=== PATIENT | female | born 1970 | race Caucasian/White ===

== ENCOUNTER 2017-05-25 16:08 | Emergency (ER) | payer OTHER ==
[2017-05-25 17:04] VITALS: RESP 18
[2017-05-25 18:12] LABS: Basophils # (A) 0.1 k/uL (0-0.2); Basophils % (A) 1 %; CH 30.6; Eosinophils # (A) 0.4 k/uL (0-0.7); Eosinophils % (A) 4 %; HCT 38.6 % (34.0-46.0); HDW 2.52; HGB 13.1 gm/dL (11.4-16.0); Luc # (Auto) 0.17; Luc % (Auto) 2; Lymphocytes # (A) 3.4 k/uL (1.0-4.8); Lymphocytes % (A) 40 %; MCH 30.6 pg (25.0-35.0); MCHC 33.8 g/dL (31.0-37.0); MCV 90.5 fL (80.0-100.0); Mean Platelet Volume 7.2; Monocytes # (A) 0.5 k/uL (0-1.0); Monocytes % (A) 5 %; Neutrophils # (A) 4.1 k/uL (1.3-7.7); Neutrophils % (A) 48 %; RBC 4.26 m/uL (3.80-5.40); RDW 12.7 % (11.5-15.5); WBC 8.5 k/uL (3.8-10.6); WBC (Perox) 8.92
--- NOTE | 2017-05-25 18:16 | XR ---
EXAMINATION TYPE: XR chest 2V DATE OF EXAM: 05/25/2017 COMPARISON: NONE HISTORY: Chest pain TECHNIQUE: Frontal and lateral views of the chest are obtained. FINDINGS: Heart and mediastinum are normal. Lungs are clear. Diaphragm is normal. There are chest le ads. Bony thorax appears normal. IMPRESSION: Normal chest
[2017-05-25 18:18] LABS: ALT 33 U/L (9-52); AST 26 U/L (14-36); Alkaline Phosphatase 67 U/L (38-126); Amylase 82 U/L (30-110); Anion Gap 10 mmol/L; Blood Urea Nitrogen 13 mg/dL (7-17); Carbon Dioxide 25 mmol/L (22-30); Chloride 105 mmol/L (98-107); Glucose 90 mg/dL (74-99); Magnesium 1.7 mg/dL (1.6-2.3); Non-African American GFR(MDRD) >60 (>60 ml/min/1.73 sqM); Potassium 3.8 mmol/L (3.5-5.1); Sodium 140 mmol/L (137-145); Total Bilirubin 0.4 mg/dL (0.2-1.3); Total Protein 6.7 g/dL (6.3-8.2)
[2017-05-25 18:22] LABS: Partial Thromboplastin Time 23.4 sec (22.0-30.0)
[2017-05-25 18:24] LABS: Prothrombin Time 10.3 sec (9.0-12.0)
[2017-05-25 18:29] LABS: Creatine Kinase 82 U/L (30-135)
[2017-05-25 18:40] VITALS: PULSE 68
[2017-05-25 18:42] LABS: Creatine Kinase MB 0.5 ng/mL (0.0-2.4); Troponin I <0.012 ng/mL (0.000-0.034)
--- NOTE | 2017-05-25 19:59 | ED ---
General Adult HPI - General Chief complaint: Chest Pain Stated complaint: Chest/Abd/Back Pain Time Seen by Provider: 05/25/17 16:32 Source: patient, RN notes reviewed Mode of arrival: wheelchair Limitations: no limitations - History of Present Illness Initial comments: 46-year-old female presents to the history of sharp anterior chest pain and left arm pain. Denies shortness of breath. Patient also has had several month history of back pain which is worse with eating. She denies vomiting or diarrhea. Does have some intermittent nausea and generalized abdominal pain. Denies any specific injury but does have a job where she does heavy lifting. There is a positive family history coronary artery disease. Patient is a nonsmoker. Chest pain is sharp in worse with movement. - Related Data Home Medications Medication Instructions Recorded Confirmed Aspirin [Adult Low Dose Aspirin EC] 81 mg PO DAILY 05/25/17 05/25/17 Cholecalciferol [Vitamin D3] 1,000 unit PO DAILY 05/25/17 05/25/17 Metoprolol Tartrate [Lopressor] 100 mg PO DAILY 05/25/17 05/25/17 [place]-3 Fatty Acids/Fish Oil [Fish 1 cap PO DAILY 05/25/17 05/25/17 Oil 1,000 mg Softgel] Previous Rx's Medication Instructions Recorded Ibuprofen [Motrin] 600 mg PO Q8HR PRN #24 tab 05/25/17 Allergies Allergy/AdvReac Type Severity Reaction Status Date / Time Penicillins Allergy Anaphylaxis Verified 05/25/17 17:50 Sulfa (Sulfonamide Allergy Rash/Hives Verified 05/25/17 17:50 Antibiotics) Review of Systems ROS Statement: Those systems with pertinent positive or pertinent negative responses have been documented in the HPI. ROS Other: All systems not noted in ROS Statement are negative. Past Medical History Past Medical History: Hypertension Additional Past Medical History / Comment(s): hypoglycemia History of Any Multi-Drug Resistant Organisms: None Reported Past Surgical History: Section Additional Past Surgical History / Comment(s): (L) breast biopsy. Past Psychological History: No Psychological Hx Reported Smoking Status: Never smoker Past Alcohol Use History: None Reported Past Drug Use History: None Reported General Exam Limitations: no limitations General appearance: alert, in no apparent distress Head exam: Present: atraumatic, normocephalic Eye exam: Present: normal appearance, PERRL ENT exam: Present: normal exam, mucous membranes moist Neck exam: Present: normal inspection. Absent: tenderness, full ROM Respiratory exam: Present: normal lung sounds bilaterally. Absent: respiratory distress, wheezes Cardiovascular Exam: Present: regular rate, normal rhythm, other (Reproducible anterior chest pain at the left sternal border). Absent: rubs GI/Abdominal exam: Present: soft. Absent: distended, tenderness Extremities exam: Present: normal inspection, normal capillary refill. Absent: pedal edema Back exam: Present: normal inspection Neurological exam: Present: alert, oriented X3, CN II-XII intact. 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 There is no ST segment elevation or depression, no signs of ischemia. Medical Decision Making - Medical Decision Making 46-year-old female presents with sharp anterior chest pain which is reproducible on examination. 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 She denies any specific injury. Patient does have risk factors including positive family history of some associated nausea. Laboratory studies are obtained which are unremarkable including normal cardiac enzymes, EKG shows no ischemic changes. Chest x-ray shows no acute process. Again chest pain is reproducible. Patient is reassured and given a prescription for Motrin. Encouraged to follow up with her primary care physician. Diagnosis: Muscular skeletal chest pain - Lab Data Result diagrams: 05/25/17 16:55 05/25/17 16:55 Lab Results 05/25/17 05/25/17 05/25/17 Range/Units 16:55 16:55 16:55 WBC 8.5 (3.8-10.6) k/uL RBC 4.26 (3.80-5.40) m/uL Hgb 13.1 (11.4-16.0) gm/dL Hct 38.6 (34.0-46.0) % MCV 90.5 (80.0-100.0) fL MCH 30.6 (25.0-35.0) pg MCHC 33.8 (31.0-37.0) g/dL RDW 12.7 (11.5-15.5) % Plt Count 241 (150-450) k/uL Neutrophils % 48 % Lymphocytes % 40 % Monocytes % 5 % Eosinophils % 4 % Basophils % 1 % Neutrophils # 4.1 (1.3-7.7) k/uL Lymphocytes # 3.4 (1.0-4.8) k/uL Monocytes # 0.5 (0-1.0) k/uL Eosinophils # 0.4 (0-0.7) k/uL Basophils # 0.1 (0-0.2) k/uL PT (9.0-12.0) sec INR (<1.2) APTT (22.0-30.0) sec Sodium 140 (137-145) mmol/L Potassium 3.8 (3.5-5.1) mmol/L Chloride 105 (98-107) mmol/L Carbon Dioxide 25 (22-30) mmol/L Anion Gap 10 mmol/L BUN 13 (7-17) mg/dL Creatinine 0.75 (0.52-1.04) mg/dL Est GFR (MDRD) Af Amer >60 (>60 ml/min/1.73 sqM) Est GFR (MDRD) Non-Af >60 (>60 ml/min/1.73 sqM) Glucose 90 (74-99) mg/dL Calcium 9.0 (8.4-10.2) mg/dL Magnesium 1.7 (1.6-2.3) mg/dL Total Bilirubin 0.4 (0.2-1.3) mg/dL AST 26 (14-36) U/L ALT 33 (9-52) U/L Alkaline Phosphatase 67 (38-126) U/L Total Creatine Kinase 82 (30-135) U/L CK-MB (CK-2) 0.5 (0.0-2.4) ng/mL CK-MB (CK-2) Rel Index 0.6 Troponin I <0.012 (0.000-0.034) ng/mL Total Protein 6.7 (6.3-8.2) g/dL Albumin 4.0 (3.5-5.0) g/dL Amylase 82 (30-110) U/L Lipase 210 (23-300) U/L 05/25/17 Range/Units 16:55 WBC (3.8-10.6) k/uL RBC (3.80-5.40) m/uL Hgb (11.4-16.0) gm/dL Hct (34.0-46.0) % MCV (80.0-100.0) fL MCH (25.0-35.0) pg MCHC (31.0-37.0) g/dL RDW (11.5-15.5) % Plt Count (150-450) k/uL Neutrophils % % Lymphocytes % % Monocytes % % Eosinophils % % Basophils % % Neutrophils # (1.3-7.7) k/uL Lymphocytes # (1.0-4.8) k/uL Monocytes # (0-1.0) k/uL Eosinophils # (0-0.7) k/uL Basophils # (0-0.2) k/uL PT 10.3 (9.0-12.0) sec INR 1.0 (<1.2) APTT 23.4 (22.0-30.0) sec Sodium (137-145) mmol/L Potassium (3.5-5.1) mmol/L Chloride (98-107) mmol/L Carbon Dioxide (22-30) mmol/L Anion Gap mmol/L BUN (7-17) mg/dL Creatinine (0.52-1.04) mg/dL Est GFR (MDRD) Af Amer (>60 ml/min/1.73 sqM) Est GFR (MDRD) Non-Af (>60 ml/min/1.73 sqM) Glucose (74-99) mg/dL Calcium (8.4-10.2) mg/dL Magnesium (1.6-2.3) mg/dL Total Bilirubin (0.2-1.3) mg/dL AST (14-36) U/L ALT (9-52) U/L Alkaline Phosphatase (38-126) U/L Total Creatine Kinase (30-135) U/L CK-MB (CK-2) (0.0-2.4) ng/mL CK-MB (CK-2) Rel Index Troponin I (0.000-0.034) ng/mL Total Protein (6.3-8.2) g/dL Albumin (3.5-5.0) g/dL Amylase (30-110) U/L Lipase (23-300) U/L Disposition Clinical Impression: Musculoskeletal chest pain Disposition: HOME SELF-CARE Condition: Good Instructions: Costochondritis (ED) Prescriptions: Ibuprofen [Motrin] 600 mg PO Q8HR PRN #24 tab PRN Reason: Pain Referrals: Alis Sanchez MD [Primary Care Provider] - 1-2 days Time of Disposition: 19:30
[2017-05-25 20:19] VITALS: BP 134/81; TEMP 99.3
== END 2017-05-25 20:19 | disposition home or self-care (01) ==
LOC: EC 16:08
DX: R07.89 Other chest pain (principal); M79.602 Pain in left arm; R10.84 Generalized abdominal pain; R11.0 Nausea; I10 Essential (primary) hypertension; Z79.82 Long term (current) use of aspirin; Z79.899 Other long term (current) drug therapy; Z88.0 Allergy status to penicillin; Z88.2 Allergy status to sulfonamides
CPT/HCPCS: 36415; 71020; 80053; 82150; 82550; 82553; 83690; 83735; 84484; 85025; 85610; 85730; 93005; 99285

== ENCOUNTER 2018-03-25 10:59 | Emergency (ER) | payer OTHER ==
[2018-03-25 11:07] VITALS: PULSE 65
[2018-03-25] MEDS ORDERED: IBUPROFEN 800 MG TAB PO STA (11:52)
--- NOTE | 2018-03-25 11:55 | XR ---
PROCEDURE: XR ribs LT w pa chest xray 5 views DATE AND TIME: 03/25/2018 11:37 AM REFERRING PHYSICIAN: Steve Mackey DO CLINICAL INDICATION: [facility], Pain TECHNIQUE: Department protocol. COMPARISON: None FINDINGS: There is no displaced fracture or malalignment. No pneumothorax or pleural effusion. The soft tissues are unremarkable. No incidental findings. IMPRESSION: NO ACUTE PROCESS.
--- NOTE | 2018-03-25 12:08 | ED ---
Fall HPI - General Chief Complaint: Fall Stated Complaint: [facility] left rib pain fall at work Time Seen by Provider: 03/25/18 11:09 Source: patient Mode of arrival: ambulatory - History of Present Illness Initial Comments: 47-year-old female presenting for evaluation of left rib pain after a fall. She states that she was about to stand on the edge of a bathtub and as she put her foot up on the ledge she slipped and fell to her left side, hitting her left chest wall on the rim of the tub, and following to her side. She denies hitting her head or injuring her neck and there are no other injuries. She did not lose consciousness and is not on blood thinners. States she felt a crack upon impact but denies any overlying bruising erythema or other discoloration. States pain is worse to palpation and with inspiration. She has not taken any medications for her injury and states that she was brought here by her boss. She will be taking a cab home. - Related Data Home Medications Medication Instructions Recorded Confirmed Aspirin [Adult Low Dose Aspirin EC] 81 mg PO DAILY 05/25/17 05/25/17 Cholecalciferol [Vitamin D3] 1,000 unit PO DAILY 05/25/17 05/25/17 Metoprolol Tartrate [Lopressor] 100 mg PO DAILY 05/25/17 05/25/17 [place]-3 Fatty Acids/Fish Oil [Fish 1 cap PO DAILY 05/25/17 05/25/17 Oil 1,000 mg Softgel] Previous Rx's Medication Instructions Recorded Ibuprofen [Motrin] 600 mg PO Q8HR PRN #24 tab 05/25/17 HYDROcodone/APAP 5-325MG [[place] 1 - 2 tab PO Q6HR PRN #7 tab 03/25/18 5-325] Ibuprofen [Motrin] 800 mg PO Q6HR #30 tab 03/25/18 Allergies Allergy/AdvReac Type Severity Reaction Status Date / Time acetaminophen Allergy Dyspnea Verified 03/25/18 11:07 [From Darvocet-N] Penicillins Allergy Anaphylaxis Verified 05/25/17 17:50 propoxyphene Allergy Dyspnea Verified 03/25/18 11:07 [From Darvocet-N] Sulfa (Sulfonamide Allergy Rash/Hives Verified 05/25/17 17:50 Antibiotics) Review of Systems ROS Statement: Those systems with pertinent positive or pertinent negative responses have been documented in the HPI. ROS Other: All systems not noted in ROS Statement are negative. Constitutional: Denies: fever, chills Eyes: Denies: eye pain, eye discharge ENT: Denies: ear pain, throat pain, epistaxis Respiratory: Denies: cough, dyspnea Cardiovascular: Denies: chest pain, palpitations Endocrine: Denies: fatigue, polydipsia Gastrointestinal: Denies: abdominal pain, nausea, vomiting Genitourinary: Denies: urgency, dysuria Musculoskeletal: Reports: other (left-sided chest wall pain). Denies: back pain Skin: Denies: rash, lesions, change in color Neurological: Denies: headache, weakness Psychiatric: Denies: anxiety, depression Hematological/Lymphatic: Denies: easy bleeding, easy bruising Past Medical History Past Medical History: Hypertension Additional Past Medical History / Comment(s): hypoglycemia History of Any Multi-Drug Resistant Organisms: None Reported Past Surgical History: Section Additional Past Surgical History / Comment(s): (L) breast biopsy. Past Psychological History: No Psychological Hx Reported Smoking Status: Never smoker Past Alcohol Use History: None Reported Past Drug Use History: None Reported General Exam Limitations: no limitations General appearance: alert, in no apparent distress Head exam: Present: atraumatic, normocephalic, normal inspection Eye exam: Present: normal appearance, PERRL, EOMI. Absent: scleral icterus, conjunctival injection, periorbital swelling ENT exam: Present: normal exam, mucous membranes moist Neck exam: Present: normal inspection. Absent: tenderness, meningismus, lymphadenopathy Respiratory exam: Present: normal lung sounds bilaterally, chest wall tenderness (left side/flank). Absent: respiratory distress, wheezes, rales, rhonchi, stridor Cardiovascular Exam: Present: regular rate, normal rhythm, normal heart sounds. Absent: systolic murmur, diastolic murmur, rubs, gallop, clicks GI/Abdominal exam: Present: soft, normal bowel sounds. Absent: distended, tenderness, guarding, rebound, rigid Rectal exam: Present: deferred Extremities exam: Present: normal inspection, full ROM, normal capillary refill. Absent: tenderness, pedal edema, joint swelling, calf tenderness Back exam: Present: normal inspection, full ROM Neurological exam: Present: alert, oriented X3, CN II-XII intact Psychiatric exam: Present: normal affect, normal mood Skin exam: Present: warm, dry, intact, normal color. Absent: rash Course Vital Signs 03/25/18 11:03 Temperature 98.3 F Pulse Rate 65 Respiratory 18 Rate Blood Pressure 135/75 O2 Sat by Pulse 97 Oximetry Medical Decision Making - Medical Decision Making 47-year-old female presenting for evaluation of left-sided chest wall pain after falling and hitting it on the edge of a bathtub. Denies loss of consciousness, blood thinner use, head neck or back injury. On physical exam she has tenderness over the left flank and chest wall however there is no overlying erythema or bruising or crepitus to palpation. Left rib/PA x-ray obtained which showed no acute process. The patient was reevaluated and given Motrin for pain control. Advised follow-up with her primary care physician and given pain control for home. Further given instructions on incentive spirometer use by respiratory therapy. Also advised to return here or to PCPs office for repeat x-ray if pain worsens or continues. The patient acknowledged an understanding of all formation provided and agreed with this plan of care. Disposition Clinical Impression: Fall, Rib pain on left side Disposition: HOME SELF-CARE Condition: Stable Instructions: Chest Pain (ED) Additional Instructions: Please use medication as discussed. Please follow up with family doctor if symptoms have not improved over the next two days. Please return to the emergency room if your symptoms increase or worsen or for any other concerns. Prescriptions: HYDROcodone/APAP 5-325MG [[place] 5-325] 1 - 2 tab PO Q6HR PRN #7 tab PRN Reason: Analgesia Ibuprofen [Motrin] 800 mg PO Q6HR #30 tab Is patient prescribed a controlled substance at d/c from ED?: Yes When asked, does pt state using other controlled substances?: No If prescribed controlled substance>3 days was MAPS reviewed?: Prescribed <3 Days If opioid is for acute pain is fill amount 7 days or less?: Yes If Rx opioid, was Start Talking consent form obtained?: Yes Referrals: Alis Sanchez MD [Primary Care Provider] - 1-2 days Time of Disposition: 12:09
[2018-03-25 12:26] VITALS: BP 132/70; RESP 16; TEMP 98.2
== END 2018-03-25 12:24 | disposition home or self-care (01) ==
LOC: EC 10:59
DX: R07.81 Pleurodynia (principal); I10 Essential (primary) hypertension; Z88.0 Allergy status to penicillin; Z88.2 Allergy status to sulfonamides; Z88.5 Allergy status to narcotic agent; Z79.82 Long term (current) use of aspirin; Z79.899 Other long term (current) drug therapy; W18.31XA Fall on same level due to stepping on an object, initial encounter; Y99.0 Civilian activity done for income or pay; Y92.69 Other specified industrial and construction area as the place of occurrence of the external cause
CPT/HCPCS: 99284

== ENCOUNTER 2018-06-24 08:42 | Emergency (ER) | payer OTHER ==
[2018-06-24] MEDS ORDERED: MECLIZINE 12.5 MG TAB PO STA (09:13)
[2018-06-24] MEDS ORDERED: ONDANSETRON 4 MG/2 ML VIAL IVP STA (09:13)
[2018-06-24] MEDS ORDERED: SODIUM CHLORIDE 0.9% 1,000 ML IV STA ×2 (09:13)
--- NOTE | 2018-06-24 09:17 | ED ---
Syncope HPI <Abad Alex - Last Filed: 06/24/18 11:31> - General Source: patient, RN notes reviewed, old records reviewed Mode of arrival: wheelchair Limitations: no limitations <FrandyEdilia - Last Filed: 06/24/18 11:33> - General Chief Complaint: Dizziness Stated Complaint: dizziness, nausea Time Seen by Provider: 06/24/18 08:57 - History of Present Illness Initial Comments: Patient is a 39-year-old female presents to the emergency department today with chief complaint of dizziness. The past 2 days. She reports she's had episodes of vomiting yesterday. She reports that the dizziness and symptoms are worse after she turns her head left and right. She reports she's had this occasionally in the past but never this severe. Patient denies any sinus congestion. She denies any chest pain or shortness breath. She presents reports that she has an occasional episode of chest pain. only within the past few weeks. Patient denies any fevers or chills diarrhea or urinary symptoms. (Edilia Wise) - Related Data Home Medications Medication Instructions Recorded Confirmed Aspirin [Adult Low Dose Aspirin EC] 81 mg PO DAILY 05/25/17 06/24/18 Cholecalciferol [Vitamin D3] 1,000 unit PO DAILY 05/25/17 06/24/18 Metoprolol Tartrate [Lopressor] 100 mg PO DAILY 05/25/17 06/24/18 Fenofibrate Nanocrystallized 48 mg PO DAILY 06/24/18 06/24/18 [Fenofibrate] Magnesium 200 mg PO DAILY 06/24/18 06/24/18 Previous Rx's Medication Instructions Recorded Meclizine [Antivert] 25 mg PO TID #12 tab 06/24/18 Ondansetron Odt [Zofran Odt] 4 mg PO Q8HR PRN #20 tab 06/24/18 Allergies Allergy/AdvReac Type Severity Reaction Status Date / Time acetaminophen Allergy Dyspnea Verified 06/24/18 10:41 [From Darvocet-N] lisinopril Allergy Unknown Verified 06/24/18 10:41 Penicillins Allergy Anaphylaxis Verified 06/24/18 10:41 propoxyphene Allergy Dyspnea Verified 06/24/18 10:41 [From Darvocet-N] Sulfa (Sulfonamide Allergy Rash/Hives Verified 06/24/18 10:41 Antibiotics) sulfamethoxazole Allergy Unknown Verified 06/24/18 10:41 [From Bactrim] trimethoprim [From Bactrim] Allergy Unknown Verified 06/24/18 10:41 Review of Systems ROS Other: All systems not noted in ROS Statement are negative. <Abad Alex - Last Filed: 06/24/18 11:31> ROS Other: All systems not noted in ROS Statement are negative. <Brittany Wiseily - Last Filed: 06/24/18 11:33> ROS Statement: Those systems with pertinent positive or pertinent negative responses have been documented in the HPI. Past Medical History Past Medical History: Hypertension Additional Past Medical History / Comment(s): hypoglycemia History of Any Multi-Drug Resistant Organisms: None Reported Past Surgical History: Section Additional Past Surgical History / Comment(s): (L) breast biopsy. Past Psychological History: No Psychological Hx Reported Smoking Status: Never smoker Past Alcohol Use History: None Reported Past Drug Use History: None Reported <Edilia Wise - Last Filed: 06/24/18 11:33> General Exam <IsaiAbad - Last Filed: 06/24/18 11:31> Limitations: no limitations General appearance: alert, in no apparent distress Head exam: Present: atraumatic, normocephalic, normal inspection Eye exam: Present: normal appearance, PERRL, EOMI, nystagmus (Evidence of horizontal nystagmus on left lateral gaze.). Absent: scleral icterus, conjunctival injection, periorbital swelling ENT exam: Present: normal exam, normal oropharynx, mucous membranes moist Neck exam: Present: normal inspection. Absent: tenderness, meningismus, lymphadenopathy Respiratory exam: Present: normal lung sounds bilaterally. Absent: respiratory distress, wheezes, rales, rhonchi, stridor Cardiovascular Exam: Present: regular rate, normal rhythm, normal heart sounds. Absent: systolic murmur, diastolic murmur, rubs, gallop, clicks GI/Abdominal exam: Present: soft, normal bowel sounds. Absent: distended, tenderness, guarding, rebound, rigid Extremities exam: Present: normal inspection, full ROM, normal capillary refill. Absent: tenderness, pedal edema, joint swelling, calf tenderness Back exam: Present: normal inspection Neurological exam: Present: alert, oriented X3, CN II-XII intact Expanded Patient oriented to: Present: person, place, time Speech: Present: fluid speech Cranial nerves: EOM's Intact: Normal Cerebellar function: Finger to Nose: Normal Upper motor neuron: Pronator Drift: Normal Sensory exam: Upper Extremity Light Touch: Normal, Lower Extremity Light Touch: Normal Motor strength exam: RUE: 5, LUE: 5, RLE: 5, LLE: 5 Eye Response: (4) open spontaneously Motor Response: (6) obeys commands Verbal Response: (5) oriented [place] Total: 15 Psychiatric exam: Present: normal affect, normal mood Skin exam: Present: warm, dry, intact, normal color. Absent: rash <Edilia Wise - Last Filed: 06/24/18 11:33> - General Exam Comments Initial Comments: This is a 47-year-old female. (Edilia Wise) Course <Abad Alex - Last Filed: 06/24/18 11:31> <Edilia Wise - Last Filed: 06/24/18 11:33> Vital Signs 06/24/18 08:49 Temperature 97.8 F Pulse Rate 70 Respiratory 18 Rate Blood Pressure 137/85 O2 Sat by Pulse 97 Oximetry - Reevaluation(s) Reevaluation #1: 06/24/18 10:54 Patient is reevaluated this time, she sitting in the room playing on her eye pad. She appears in no acute distress. She does state when she stays no for head she feels dizzy with a mild headache in the posterior head. She reports her nausea is diminished but still complains of a dizziness. I discussed she has no signs of neurological deficits is quite concerning. We will do a computed tomography scan of her brain. (Edilia Wise) Medical Decision Making - Lab Data Result diagrams: 06/24/18 09:09 06/24/18 09:09 <Abad Alex - Last Filed: 06/24/18 11:31> - Lab Data Result diagrams: 06/24/18 09:09 06/24/18 09:09 - Radiology Data Radiology results: report reviewed <Edilia Wise - Last Filed: 06/24/18 11:33> - Medical Decision Making I reviewed and agree with the PA findings. Including all diagnostic interpretations and treatment plan. Dr. Alex (Abad Alex) 39-year-old female presents emergency room today with pain with range of motion of her head and associated dizziness. She said multiple episodes of vomiting. Patient labwork at this time is ongoing. EKG shows no acute changes. Chest x- ray was reviewed and negative for any acute process. Due to the continued dizziness complaints of a mild headache rated to computed tomography scan. CT was negative for any acute process. Pain seems to be positional with turning her head left and right. Likely consistent with vertigo. She did have some nystagmus on exam. Integument Patient meclizine and Zofran. This time Patient has been very multiple times appears in no acute distress. On her eye pad while in the emergency room. She does no show any other signs of neurological deficits or weakness. Patient at this time will be discharged with a prescription from meclizine and Zofran for dizziness. Given information please maneuver. I discussed that she should follow-up with PCP. QUESTIONS answered and return parameters were discussed. (Edilia Wise) - Lab Data Lab Results 06/24/18 06/24/18 06/24/18 Range/Units 09:09 09:09 09:09 WBC 6.5 (3.8-10.6) k/uL RBC 4.52 (3.80-5.40) m/uL Hgb 13.7 (11.4-16.0) gm/dL Hct 41.7 (34.0-46.0) % MCV 92.2 (80.0-100.0) fL MCH 30.2 (25.0-35.0) pg MCHC 32.8 (31.0-37.0) g/dL RDW 12.9 (11.5-15.5) % Plt Count 216 (150-450) k/uL Neutrophils % 45 % Lymphocytes % 46 % Monocytes % 3 % Eosinophils % 4 % Basophils % 1 % Neutrophils # 2.9 (1.3-7.7) k/uL Lymphocytes # 3.0 (1.0-4.8) k/uL Monocytes # 0.2 (0-1.0) k/uL Eosinophils # 0.3 (0-0.7) k/uL Basophils # 0.0 (0-0.2) k/uL PT 10.7 (9.0-12.0) sec INR 1.1 (<1.2) Sodium 140 (137-145) mmol/L Potassium 4.2 (3.5-5.1) mmol/L Chloride 104 (98-107) mmol/L Carbon Dioxide 26 (22-30) mmol/L Anion Gap 10 mmol/L BUN 20 H (7-17) mg/dL Creatinine 0.83 (0.52-1.04) mg/dL Est GFR (CKD-EPI)AfAm >90 (>60 ml/min/1.73 sqM) Est GFR (CKD-EPI)NonAf 84 (>60 ml/min/1.73 sqM) Glucose 132 H (74-99) mg/dL Calcium 9.4 (8.4-10.2) mg/dL Total Bilirubin 0.5 (0.2-1.3) mg/dL AST 34 (14-36) U/L ALT 32 (9-52) U/L Alkaline Phosphatase 46 (38-126) U/L Troponin I (0.000-0.034) ng/mL Total Protein 7.2 (6.3-8.2) g/dL Albumin 4.5 (3.5-5.0) g/dL Urine Color Urine Appearance (Clear) Urine pH (5.0-8.0) Ur Specific [place] (1.001-1.035) Urine Protein (Negative) Urine Glucose (UA) (Negative) Urine Ketones (Negative) Urine Blood (Negative) Urine Nitrite (Negative) Urine Bilirubin (Negative) Urine Urobilinogen (<2.0) mg/dL Ur Leukocyte Esterase (Negative) Urine RBC (0-5) /hpf Urine WBC (0-5) /hpf Ur Squamous Epith Cells (0-4) /hpf Urine Bacteria (None) /hpf Urine Mucus (None) /hpf 06/24/18 06/24/18 Range/Units 09:09 09:45 WBC (3.8-10.6) k/uL RBC (3.80-5.40) m/uL Hgb (11.4-16.0) gm/dL Hct (34.0-46.0) % MCV (80.0-100.0) fL MCH (25.0-35.0) pg MCHC (31.0-37.0) g/dL RDW (11.5-15.5) % Plt Count (150-450) k/uL Neutrophils % % Lymphocytes % % Monocytes % % Eosinophils % % Basophils % % Neutrophils # (1.3-7.7) k/uL Lymphocytes # (1.0-4.8) k/uL Monocytes # (0-1.0) k/uL Eosinophils # (0-0.7) k/uL Basophils # (0-0.2) k/uL PT (9.0-12.0) sec INR (<1.2) Sodium (137-145) mmol/L Potassium (3.5-5.1) mmol/L Chloride (98-107) mmol/L Carbon Dioxide (22-30) mmol/L Anion Gap mmol/L BUN (7-17) mg/dL Creatinine (0.52-1.04) mg/dL Est GFR (CKD-EPI)AfAm (>60 ml/min/1.73 sqM) Est GFR (CKD-EPI)NonAf (>60 ml/min/1.73 sqM) Glucose (74-99) mg/dL Calcium (8.4-10.2) mg/dL Total Bilirubin (0.2-1.3) mg/dL AST (14-36) U/L ALT (9-52) U/L Alkaline Phosphatase (38-126) U/L Troponin I <0.012 (0.000-0.034) ng/mL Total Protein (6.3-8.2) g/dL Albumin (3.5-5.0) g/dL Urine Color Yellow Urine Appearance Clear (Clear) Urine pH 5.5 (5.0-8.0) Ur Specific [place] 1.016 (1.001-1.035) Urine Protein Negative (Negative) Urine Glucose (UA) Negative (Negative) Urine Ketones Negative (Negative) Urine Blood Small H (Negative) Urine Nitrite Negative (Negative) Urine Bilirubin Negative (Negative) Urine Urobilinogen <2.0 (<2.0) mg/dL Ur Leukocyte Esterase Negative (Negative) Urine RBC 2 (0-5) /hpf Urine WBC 1 (0-5) /hpf Ur Squamous Epith Cells 2 (0-4) /hpf Urine Bacteria Rare H (None) /hpf Urine Mucus Rare H (None) /hpf - EKG Data EKG Comments: EKG performed at a 58 shows normal sinus rhythm abnormal EKG noted. Ventricular rate of 71 bpm. Verbal 164 ms. QS duration 80 ms. QT QTc is 3 03/13/2012 milliseconds. ( Edilia Wise) - Radiology Data Chest x-ray is negative for any acute process. No acute intracranial abnormality noted. (Edilia Wise) Disposition <IsaiAbad - Last Filed: 06/24/18 11:31> Is patient prescribed a controlled substance at d/c from ED?: No <Edilia Wise - Last Filed: 06/24/18 11:33> Clinical Impression: Dizziness Disposition: HOME SELF-CARE Condition: Good Instructions: Dizziness (ED) Additional Instructions: Patient has a follow-up with primary care provider. Return to the emergency department if any alarming signs or symptoms occur. Prescriptions: Meclizine [Antivert] 25 mg PO TID #12 tab Ondansetron Odt [Zofran Odt] 4 mg PO Q8HR PRN #20 tab PRN Reason: Nausea Referrals: Alis Sanchez MD [Primary Care Provider] - 1-2 days
[2018-06-24 09:31] LABS: Basophils % (A) 1 %; Eosinophils # (A) 0.3 k/uL (0-0.7); Eosinophils % (A) 4 %; HCT 41.7 % (34.0-46.0); HGB 13.7 gm/dL (11.4-16.0); Lymphocytes % (A) 46 %; MCH 30.2 pg (25.0-35.0); MCHC 32.8 g/dL (31.0-37.0); MCV 92.2 fL (80.0-100.0); Mean Platelet Volume 6.9; Monocytes # (A) 0.2 k/uL (0-1.0); Monocytes % (A) 3 %; Neutrophils # (A) 2.9 k/uL (1.3-7.7); Neutrophils % (A) 45 %; Platelet Count 216 k/uL (150-450); RBC 4.52 m/uL (3.80-5.40); RDW 12.9 % (11.5-15.5); WBC 6.5 k/uL (3.8-10.6)
[2018-06-24 09:41] LABS: INR 1.1 (<1.2); Prothrombin Time 10.7 sec (9.0-12.0)
[2018-06-24 09:44] LABS: ALT 32 U/L (9-52); AST 34 U/L (14-36); Albumin 4.5 g/dL (3.5-5.0); Alkaline Phosphatase 46 U/L (38-126); Anion Gap 10 mmol/L; Blood Urea Nitrogen 20 mg/dL (7-17); Calcium 9.4 mg/dL (8.4-10.2); Carbon Dioxide 26 mmol/L (22-30); Chloride 104 mmol/L (98-107); Glucose 132 mg/dL (74-99); Potassium 4.2 mmol/L (3.5-5.1); Sodium 140 mmol/L (137-145); Total Bilirubin 0.5 mg/dL (0.2-1.3); Total Protein 7.2 g/dL (6.3-8.2)
--- NOTE | 2018-06-24 10:02 | XR ---
EXAMINATION TYPE: XR chest 2V DATE OF EXAM: 06/24/2018 HISTORY: dizziness. REFERENCE: Previous study dated 03/25/2018. FINDINGS: The lungs are clear. Pleural space are clear. The heart is not enlarged. IMPRESSION: NO ACUTE INTRATHORACIC ABNORMALITY.
[2018-06-24 10:16] LABS: Appearance,Urine Clear (Clear); Bacteria,Urine Rare /hpf; Bilirubin,Urine Negative (Negative); Blood,Urine Small (Negative); Color,Urine Yellow; Glucose,Urine (UA) Negative (Negative); Ketones,Urine Negative (Negative); Leukocyte Esterase,Urine Negative (Negative); Mucus,Urine Rare /hpf; Nitrite,Urine Negative (Negative); PH, Urine 5.5 (5.0-8.0); Protein,Urine Negative (Negative); RBC,Urine 2 /hpf (0-5); Specific Gravity,Urine 1.016 (1.001-1.035); Squamous Epithelial Cell,Urine 2 /hpf (0-4); Urobilinogen,Urine <2.0 mg/dL (<2.0); WBC,Urine 1 /hpf (0-5)
--- NOTE | 2018-06-24 11:19 | CT ---
EXAMINATION TYPE: CT brain wo con DATE OF EXAM: 06/24/2018 COMPARISON: NONE HISTORY: Headache and dizziness. No known injury CT DLP: 1017.9 mGycm Automated exposure control for dose reduction was used. FINDINGS: Central structures are midline. There is no evidence of hydrocephalus. No acute focal lesion, mass ef fect or midline shift is seen. I do not see evidence of intracranial blood. Visualized portions of the paranasal sinuses and mastoids are clear. The bony calvarium is intact. IMPRESSION: NO ACUTE INTRACRANIAL ABNORMALITY.
[2018-06-24 11:40] VITALS: BP 118/69; PULSE 63; RESP 16; TEMP 98.1
== END 2018-06-24 11:45 | disposition home or self-care (01) ==
LOC: EC 08:42
DX: R42 Dizziness and giddiness (principal); R11.2 Nausea with vomiting, unspecified; R51 Headache; I10 Essential (primary) hypertension; Z79.82 Long term (current) use of aspirin; Z79.899 Other long term (current) drug therapy; Z88.6 Allergy status to analgesic agent; Z88.0 Allergy status to penicillin; Z88.2 Allergy status to sulfonamides; Z88.5 Allergy status to narcotic agent
CPT/HCPCS: 36415; 93005; 80053; 84484; 85025; 85610; 81001; 71046; 70450; 99285; 96374; 96361 ×2; J2405

== ENCOUNTER 2020-09-08 13:30 | Emergency (ER) | payer OTHER ==
[2020-09-08 13:44] VITALS: PULSE 82; RESP 18; TEMP 98.3
[2020-09-08 14:36] LABS: Glucose,Whole Blood 89 mg/dL (75-99)
--- NOTE | 2020-09-08 14:38 | ED ---
General Adult HPI - General Chief complaint: Recheck/Abnormal Lab/Rx Stated complaint: hypertension Time Seen by Provider: 09/08/20 14:10 Source: patient, RN notes reviewed Mode of arrival: wheelchair Limitations: no limitations - History of Present Illness Initial comments: 49-year-old female with a past medical history of hypertension for which she ta kes metoprolol and hypoglycemia presents to the emergency room for a chief pressure. Patient states that she started taking her blood pressure over the past few days andit has been high. Patient states that today it was 145/90 when she left the house. Patient does take metoprolol. She tried to call her doctor to see if she could take another half pill but could not get in or talk to her doctor. She states this is what brought her to the emergency room and that she was not able to ask a question and without checking in. Patient reports she has also had headaches for months now. States they are mild in nature. She did have her glasses changed for this. She is following up with her doctor for this.Patient has no other complaints at this time including shortness of breath, chest pain, abdominal pain, nausea or vomiting, or visual changes. - Related Data Home Medications Medication Instructions Recorded Confirmed Aspirin [Adult Low Dose Aspirin EC] 81 mg PO DAILY 05/25/17 06/24/18 Cholecalciferol [Vitamin D3] 1,000 unit PO DAILY 05/25/17 06/24/18 Metoprolol Tartrate [Lopressor] 100 mg PO DAILY 05/25/17 06/24/18 Fenofibrate Nanocrystallized 48 mg PO DAILY 06/24/18 06/24/18 [Fenofibrate] Magnesium 200 mg PO DAILY 06/24/18 06/24/18 Previous Rx's Medication Instructions Recorded Meclizine [Antivert] 25 mg PO TID #12 tab 06/24/18 Ondansetron Odt [Zofran Odt] 4 mg PO Q8HR PRN #20 tab 06/24/18 Allergies Allergy/AdvReac Type Severity Reaction Status Date / Time acetaminophen Allergy Dyspnea Verified 06/24/18 10:41 [From Darvocet-N] lisinopril Allergy Unknown Verified 06/24/18 10:41 Penicillins Allergy Anaphylaxis Verified 06/24/18 10:41 propoxyphene Allergy Dyspnea Verified 06/24/18 10:41 [From Darvocet-N] Sulfa (Sulfonamide Allergy Rash/Hives Verified 06/24/18 10:41 Antibiotics) sulfamethoxazole Allergy Unknown Verified 06/24/18 10:41 [From Bactrim] trimethoprim [From Bactrim] Allergy Unknown Verified 06/24/18 10:41 Review of Systems ROS Statement: Those systems with pertinent positive or pertinent negative responses have been documented in the HPI. ROS Other: All systems not noted in ROS Statement are negative. Past Medical History Past Medical History: Hypertension Additional Past Medical History / Comment(s): hypoglycemia History of Any Multi-Drug Resistant Organisms: None Reported Past Surgical History: Section Additional Past Surgical History / Comment(s): (L) breast biopsy. Past Psychological History: No Psychological Hx Reported Smoking Status: Never smoker Past Alcohol Use History: None Reported Past Drug Use History: None Reported General Exam Limitations: no limitations General appearance: alert Head exam: Present: atraumatic, normocephalic, normal inspection Eye exam: Present: normal appearance, PERRL, EOMI. Absent: scleral icterus, conjunctival injection, periorbital swelling ENT exam: Present: normal exam, mucous membranes moist Neck exam: Present: normal inspection, full ROM. Absent: tenderness, meningismus, lymphadenopathy Respiratory exam: Present: normal lung sounds bilaterally. Absent: respiratory distress, wheezes, rales, rhonchi, stridor Cardiovascular Exam: Present: regular rate, normal rhythm, normal heart sounds. Absent: systolic murmur, diastolic murmur, rubs, gallop, clicks GI/Abdominal exam: Present: soft, normal bowel sounds. Absent: distended, tenderness, guarding, rebound, rigid Neurological exam: Present: alert, oriented X3, normal gait, other (GCS 15) Course Vital Signs 09/08/20 09/08/20 09/08/20 13:38 14:46 14:53 Temperature 98.3 F Pulse Rate 82 Respiratory 18 Rate Blood Pressure 153/90 130/90 130/90 O2 Sat by Pulse 98 Oximetry Medical Decision Making - Medical Decision Making Vitals are stable. Patient's initial blood pressure is 153/90. Patient has slight headache but she has had this for months and had her glasses changed. States she is following up with her primary care provider for this. She also has been following up with her doctor for increased fatigue over the past few months. Patient presented because she wanted to know if she could take another half blood pressure pill and cannot get into her doctor. Her highest blood pressure at home was 145/90. I repeated her blood pressure and is now 130/90. I checked her glucose which is 88. At this time there is no indication for acutely lowering patient's blood pressure as it is within the normal range. If patient's blood pressure goes over 160/98 did say she could take another extra pill however to be cautious because she doesn't want to become hypotensive. I reported she needs to keep a log and follow up with her doctor. She will return here for any worsening symptoms.I discussed this case with attending Dr. Grove who agrees with this assessment and treatment plan. - Lab Data Lab Results 09/08/20 Range/Units 14:34 POC Glucose (mg/dL) 89 (75-99) mg/dL POC Glu Associate Professor Of Surgery ID Irina Keith Disposition Clinical Impression: Hypertension, Normal glucose level Disposition: HOME SELF-CARE Condition: Good Instructions (If sedation given, give patient instructions): Chronic Hypertension (ED) Additional Instructions: Please follow-up with your doctor. In the meantime make a blood pressure log one time daily. If your blood pressure is greater than 160/90 may take another half pill of your blood pressure medication however it needs to be at least 2 hours after your initial blood pressure medication. If you have any worsening symptoms return to the emergency room. Is patient prescribed a controlled substance at d/c from ED?: No Referrals: Alis Sanchez MD [Primary Care Provider] - 1-2 days Time of Disposition: 15:01
[2020-09-08 14:47] VITALS: BP 130/90
== END 2020-09-08 15:06 | disposition home or self-care (01) ==
LOC: EC 13:30
DX: I10 Essential (primary) hypertension (principal); Z79.82 Long term (current) use of aspirin; Z79.899 Other long term (current) drug therapy; Z88.6 Allergy status to analgesic agent; Z88.8 Allergy status to other drugs, medicaments and biological substances; Z88.0 Allergy status to penicillin; Z88.2 Allergy status to sulfonamides; Z88.1 Allergy status to other antibiotic agents; Z88.5 Allergy status to narcotic agent
CPT/HCPCS: 36415; 99283

== ENCOUNTER 2022-06-06 18:55 | Emergency (ER) | payer OTHER ==
[2022-06-06 19:05] VITALS: BP 125/78; PULSE 67; RESP 16; TEMP 98.3
[2022-06-06] MEDS ORDERED: LIDOCAINE 5% PATCH TOPICAL STA (19:37)
--- NOTE | 2022-06-06 21:01 | XR ---
EXAMINATION TYPE: XR ribs LT w pa chest xray DATE OF EXAM: 06/06/2022 COMPARISON: NONE HISTORY: Rib pain TECHNIQUE: 5 views FINDINGS: Heart and mediastinum are normal. Lungs are clear. Diaphragm is normal. Bony thorax is inta ct there is no pleural effusion or pneumothorax. Left lung is clear of infiltrate. The left ribs appe ar intact. IMPRESSION: Normal chest. Normal left ribs.
--- NOTE | 2022-06-06 21:12 | ED ---
General Adult HPI - General Chief complaint: Chest Pain Stated complaint: [facility], previous injury to ribs Time Seen by Provider: 06/06/22 19:25 Source: patient, RN notes reviewed, old records reviewed Mode of arrival: ambulatory Limitations: no limitations - History of Present Illness Initial comments: Patient is a 51-year-old female with past medical history remarkable for hypertension and prior rib contusion/fractures he presents emergency Department after aggravating something on her left rib. States she was moving a table at work, she thinks she may have pulled a bruised a muscle on the left side. States she did have a rib fracture there previously and is concerned that may be what is going on. Discussed the pain as sharp and worse with movement. Worse with deep inspiration. Locates the pain to the left inferior most rib space in the anterior axillary line. She denies any other form of chest pain, shortness breath, abdominal pain, nausea, vomiting. Denies any other injury. Presents for further evaluation at this time. - Related Data Home Medications Medication Instructions Recorded Confirmed Aspirin [Adult Low Dose Aspirin EC] 81 mg PO DAILY 05/25/17 09/07/21 Cholecalciferol [Vitamin D3] 1,000 unit PO DAILY 05/25/17 09/07/21 Metoprolol Tartrate [Lopressor] 100 mg PO DAILY 05/25/17 09/07/21 Fenofibrate Nanocrystallized 48 mg PO DAILY 06/24/18 09/07/21 [Fenofibrate] Meclizine [Antivert] 25 mg PO TID PRN 09/07/21 09/07/21 Allergies Allergy/AdvReac Type Severity Reaction Status Date / Time lisinopril Allergy Unknown Verified 06/06/22 19:05 Penicillins Allergy Anaphylaxis Verified 06/06/22 19:05 propoxyphene Allergy Dyspnea Verified 06/06/22 19:05 [From Darvocet-N] Sulfa (Sulfonamide Allergy Rash/Hives Verified 06/06/22 19:05 Antibiotics) sulfamethoxazole Allergy Unknown Verified 06/06/22 19:05 [From Bactrim] trimethoprim [From Bactrim] Allergy Unknown Verified 06/06/22 19:05 Review of Systems ROS Statement: Those systems with pertinent positive or pertinent negative responses have been documented in the HPI. Review of Systems: CONST: Denies fever EYES: Denies blurry vision ENT: Denies nasal congestion C/V: Denies Chest pain RESP: Denies shortness of breath GI: Denies abdominal pain : Denies dysuria SKIN: Denies rash. MSK: Endorses left rib pain NEURO: Denies headache ROS Other: All systems not noted in ROS Statement are negative. Past Medical History Past Medical History: Hypertension Additional Past Medical History / Comment(s): hypoglycemia History of Any Multi-Drug Resistant Organisms: None Reported Past Surgical History: Section Additional Past Surgical History / Comment(s): (L) breast biopsy. ORAL SURGERY Past Anesthesia/Blood Transfusion Reactions: Previous Problems w/ Anesthesia Additional Past Anesthesia/Blood Transfusion Reaction / Comment(s): TOOK LONGER TO WAKE UP Past Psychological History: No Psychological Hx Reported Smoking Status: Never smoker - Past Family History Brother(s) Family Medical History: Cancer General Exam - General Exam Comments Initial Comments: General: Appears in no acute distress. HEAD: Normal with no signs of head trauma. EYES: PERRLA, EOMI, conjunctiva normal, no discharge. ENT: Hearing grossly intact, normal oropharynx. RESPIRATORY: Clear breath sounds bilaterally. No wheezes, rales, or rhonchi. No hypoxia. No tachypnea. C/V: Regular rate and rhythm. S1 and S2 auscultated. Peripheral pulses 2+ and intact throughout. ABD: Abd is soft, nontender, nondistended EXT: Left inferior most tetanus palpation along the anterior axillary line at the inferior to ribs. No skin changes. No obvious bruising. No midline back or spinal tenderness to palpation. SKIN: No rashes or lesions observed on exposed skin. NEURO: Alert and oriented 4. Limitations: no limitations Course Vital Signs 06/06/22 19:03 Temperature 98.3 F Pulse Rate 67 Respiratory 16 Rate Blood Pressure 125/78 O2 Sat by Pulse 99 Oximetry Medical Decision Making - Medical Decision Making Based on the patient's presentation and physical exam, I am concerned for musculoskeletal injury. Cannot rule out rib fracture at this time but likely experiencing a rib contusion. We'll obtain a chest x-ray and rib x-rays. Offer the patient analgesia and she accepted lidocaine patch. She was in agreement this plan and she has no upper respiratory symptoms at this time. No concern for pneumonia. Chest x-ray showed no signs of acute fracture or injury. I updated the patient. Vital signs are within normal limits. I believe it is safe for her to be discharged home at this time. She will be given a work note. She'll be given an incentive spirometer. I offered her lidocaine patches for home, and she declined. She will use [id number] analgesia as needed. Strict return precautions were discussed. I instructed the patient to follow up with their PCP in the next 1-3 days. I explained that the patient should return to the emergency department if they experience any worsening symptoms. Strict return precautions were discussed with the patient. The patient expressed understanding of these instructions. I answered all questions that the patient had. The patient was discharged home in good condition with their prescriptions and follow up information. Disposition Clinical Impression: Rib contusion Disposition: HOME SELF-CARE Condition: Good Instructions (If sedation given, give patient instructions): Rib Contusion (ED) Is patient prescribed a controlled substance at d/c from ED?: No Referrals: Alis Sanchez MD [Primary Care Provider] - 1-2 days Time of Disposition: 21:05
== END 2022-06-06 21:35 | disposition home or self-care (01) ==
LOC: EC 18:55
DX: S20.212A Contusion of left front wall of thorax, initial encounter (principal); I10 Essential (primary) hypertension; Z88.0 Allergy status to penicillin; Z88.2 Allergy status to sulfonamides; Z88.8 Allergy status to other drugs, medicaments and biological substances; Z88.5 Allergy status to narcotic agent; Z79.82 Long term (current) use of aspirin; Z79.899 Other long term (current) drug therapy; X50.9XXA Other and unspecified overexertion or strenuous movements or postures, initial encounter
CPT/HCPCS: 99283

== ENCOUNTER → 2022-06-16 | Outpatient (CLI) | payer OTHER ==
--- NOTE | 2022-06-18 08:19 | XR ---
EXAMINATION TYPE: XR ribs LT w pa chest xray DATE OF EXAM: 06/16/2022 COMPARISON: NONE HISTORY: Pain TECHNIQUE: Single view of the chest 4 views of the ribs are submitted. FINDINGS: The lungs are clear. No Evidence for pneumothorax. No evidence for focal contusion. Medi astinal structures are midline. Evaluation of the ribs fails to demonstrate evidence for displaced r ib fracture or secondary sign of rib fracture. IMPRESSION: Negative study
== END | disposition home or self-care (01) ==
LOC: RADXRMAIN 13:13
PROVIDERS: ATTEND Emergency Medicine
DX: S20.20XD Contusion of thorax, unspecified, subsequent encounter (principal)

== ENCOUNTER 2022-10-25 11:57 | Day surgery (SDC) | payer OTHER ==
[2022-10-21 12:44] VITALS: BMI 29.2
[~2022-10-25 11:57] MED LIST: LACTATED RINGERS 1,000 ML IV SCH; LIDOCAINE 1% (10MG/ML) FOR IV START INTRADERMA PRN
[2022-10-25 12:35] LABS: Glucose,Whole Blood 78 mg/dL (70-110)
[2022-10-25 12:36] VITALS: TEMP 97
--- NOTE | 2022-10-25 12:52 | P.GSHP ---
History of Present Illness H&P Date: 10/25/22 Chief Complaint: Screening colonoscopy Is a 52-year-old female who presents today for screening colonoscopy. Patient denies a significant GI complaints. Past Medical History Past Medical History: Hypertension, Osteoarthritis (OA) Additional Past Medical History / Comment(s): hypoglycemia, states external rectal polyp. History of Any Multi-Drug Resistant Organisms: None Reported Past Surgical History: Section Additional Past Surgical History / Comment(s): (L) breast biopsy. ORAL SURGERY Past Anesthesia/Blood Transfusion Reactions: Previous Problems w/ Anesthesia Additional Past Anesthesia/Blood Transfusion Reaction / Comment(s): states she is hard to wake up after anesthesia Past Psychological History: Anxiety Additional Psychological History / Comment(s): states current anxiety due to stress. Smoking Status: Never smoker Past Alcohol Use History: None Reported Past Drug Use History: None Reported - Past Family History Brother(s) Family Medical History: Cancer Additional Family Medical History / Comment(s): lung cancer Medications and Allergies Home Medications Medication Instructions Recorded Confirmed Type Aspirin [Adult Low Dose Aspirin EC] 81 mg PO DAILY 05/25/17 10/25/22 History Metoprolol Tartrate [Lopressor] 100 mg PO DAILY 05/25/17 10/25/22 History Fenofibrate Nanocrystallized 48 mg PO DAILY 06/24/18 10/25/22 History [Fenofibrate] Collagen (Unknown Dose) 1 dose PO DAILY 10/21/22 10/25/22 History Ibuprofen [Motrin] 800 mg PO ONCE 10/21/22 10/25/22 History Multivit-Min/Iron/Folic/Lutein 1 each PO DAILY 10/21/22 10/25/22 History [Centrum Silver Women Tablet] Zinc (Unknown Dose) 1 dose PO DAILY 10/21/22 10/25/22 History Allergies Allergy/AdvReac Type Severity Reaction Status Date / Time lisinopril Allergy throat Verified 10/25/22 12:24 swelling Penicillins Allergy Anaphylaxis Verified 10/25/22 12:24 propoxyphene Allergy Dyspnea Verified 10/25/22 12:24 [From Darvocet-N] Sulfa (Sulfonamide Allergy Rash/Hives Verified 10/25/22 12:24 Antibiotics) sulfamethoxazole Allergy Unknown Verified 10/25/22 12:24 [From Bactrim] trimethoprim [From Bactrim] Allergy Unknown Verified 10/25/22 12:24 sulfa products AdvReac Severe states no Uncoded 10/25/22 12:24 products with sulfa Surgical - Exam Vital Signs Temp Pulse Resp BP Pulse Ox 97 F L 84 16 125/76 94 L 10/25/22 12:24 10/25/22 12:24 10/25/22 12:24 10/25/22 12:24 10/25/22 12:24 - General well developed, well nourished, no distress - Eyes PERRL - ENT normal pinna, normal nares - Neck no masses - Respiratory normal expansion - Cardiovascular Rhythm: regular - Abdomen Abdomen: soft, non tender Assessment and Plan Assessment: We'll perform screening colonoscopy
[2022-10-25] MEDS ORDERED: PROPOFOL 10 MG/ML 20 ML VIAL IV ONE (12:53)
--- NOTE | 2022-10-25 13:09 | P.OP ---
Date of Procedure: 10/25/22 Preoperative Diagnosis: Screening colonoscopy Postoperative Diagnosis: Diverticulosis Procedure(s) Performed: Colonoscopy Anesthesia: MAC Surgeon: Vignesh Long Pathology: none sent Condition: stable Disposition: PACU Description of Procedure: The patient's placed on the endoscopy table in the lateral position. She received IV sedation. Digital rectal exam was performed which revealed no ebonized. The flexible colonoscope was then placed the patient's anus and passed throughout the entire colon. The ileocecal valve was visualized. The cecum, ascending and transverse colon appeared normal. In the descending and; was mild diverticular changes. Scope was then brought back the rectum and this appeared normal. Scope withdrawn for patient.
[2022-10-25 13:35] VITALS: BP 101/72; PULSE 61; RESP 16
== END 2022-10-25 13:55 | disposition home or self-care (01) ==
LOC: ORWHC2ENDO 11:57
PROVIDERS: ATTEND Surgery
DX: Z12.11 Encounter for screening for malignant neoplasm of colon (principal); K57.30 Diverticulosis of large intestine without perforation or abscess without bleeding; I10 Essential (primary) hypertension; E16.2 Hypoglycemia, unspecified; M19.90 Unspecified osteoarthritis, unspecified site; F41.9 Anxiety disorder, unspecified; Z87.19 Personal history of other diseases of the digestive system; Z98.891 History of uterine scar from previous surgery; Z98.890 Other specified postprocedural states; Z80.1 Family history of malignant neoplasm of trachea, bronchus and lung; Z79.82 Long term (current) use of aspirin; Z79.1 Long term (current) use of non-steroidal anti-inflammatories (NSAID); Z79.899 Other long term (current) drug therapy; Z88.0 Allergy status to penicillin; Z88.2 Allergy status to sulfonamides; Z88.1 Allergy status to other antibiotic agents; Z88.8 Allergy status to other drugs, medicaments and biological substances; Z88.5 Allergy status to narcotic agent

== ENCOUNTER → 2023-08-15 | Outpatient (CLI) | payer OTHER ==
--- NOTE | 2023-08-17 23:27 | MM ---
Reason for Exam: Screening (asymptomatic). Indicated Problems: Pain of the left side (Global) for 2 Year(s). Patient History: Menarche at age 7. First Full-Term at age 23. Postmenopausal. Risk Values: Astrid 5 year model risk: 1.1%. NCI Lifetime model risk: 8.4%. Prior Study Comparison: No prior studies available for comparison. Tissue Density: There are scattered fibroglandular densities. Findings: Analyzed By CAD. There is a 7 mm isodense nodule outer aspect of the right cc view, posterior depth for which further evaluation is recommended. Otherwise, no suspicious microcalcification or other discrete abnormality is seen on either side. Overall Assessment: Incomplete: need additional imaging evaluation, BI-RAD 0 Management: Special View Mammogram of the right breast. Diagnostic Breast Ultrasound of the right breast. Additional views to include spot 3-D CC, 3-D CC rolled medial, and 3-D ML views. Targeted right breast ultrasound if any persisting abnormality. [facility] will attempt to contact patient to return for supplemental views and ultrasound if indicated. Electronically signed and approved by: Renny Guillen M.D. Radiologist
== END | disposition home or self-care (01) ==
LOC: RADMAMWWP 13:52
PROVIDERS: ATTEND Internal Medicine
DX: Z12.31 Encounter for screening mammogram for malignant neoplasm of breast (principal); Z78.0 Asymptomatic menopausal state
CPT/HCPCS: 77063; 77067

== ENCOUNTER → 2023-08-29 | Outpatient (CLI) | payer OTHER ==
--- NOTE | 2023-08-29 14:37 | MM ---
Reason for Exam: Additional evaluation requested from abnormal screening. Last screening mammogram was performed less than 1 month ago. Patient History: Menarche at age 7. First Full-Term at age 23. Postmenopausal. Risk Values: Astrid 5 year model risk: 1.1%. NCI Lifetime model risk: 8.4%. Prior Study Comparison: 08/15/2023 Bilateral MG 3D screening mammo w/cad, [facility]. Tissue Density: Right: The breast tissue is heterogeneously dense. This may lower the sensitivity of mammography. Findings: Analyzed By CAD. There is a 6.6 mm nodular density upper outer quadrant right breast 13.5 cm from the nipple. Ultrasound is recommended. Overall Assessment: Incomplete: need additional imaging evaluation, BI-RAD 0 Management: Diagnostic Breast Ultrasound of the right breast. . Results were given to the patient verbally at the time of exam. Patient should continue monthly self-breast exams. A clinical breast exam by your physician is recommended on an annual basis. This exam should not preclude additional follow-up of suspicious palpable abnormalities. Note on Astrid scores and lifetime risk: 1. A Astrid score greater than 3% is considered moderate risk. If this is the case, consider specialist referral to assess eligibility for a risk reducing agent. 2. If overall lifetime risk for the development of breast cancer is 20% or higher, the patient may qualify for future screening with alternating mammogram and breast MRI. Electronically signed and approved by: Hans Gaines M.D. Radiologis
--- NOTE | 2023-08-29 15:14 | USB ---
Reason for Exam: Additional evaluation requested from abnormal screening. Patient History: Menarche at age 7. First Full-Term at age 23. Postmenopausal. Risk Values: Astrid 5 year model risk: 1.1%. NCI Lifetime model risk: 8.4%. Technique: Method: Targeted. Prior Study Comparison: 08/15/2023 Bilateral MG 3D screening mammo w/cad, [facility]. Findings: The upper outer quadrant of the right breast, the axilla of the right breast and the retroareolar of the right breast were scanned. Smoothly marginated cystic lesion at the right 10:00 position 13 cm from the nipple measuring 4 x 3 mm. Precautionary six-month follow-up mammography advised. No solid lesions seen. Overall Assessment: Probably benign, BI-RAD 3 Management: Diagnostic Mammogram of the right breast. A clinical breast exam by your physician is recommended on an annual basis and results should be correlated with mammographic findings. This exam should not preclude additional follow-up of suspicious palpable abnormalities. Results were given to the patient verbally at the time of exam. Electronically signed and approved by: Hans Gaines M.D. Radiologis
== END | disposition home or self-care (01) ==
LOC: RADMAMWWP 14:10
PROVIDERS: ATTEND Internal Medicine
DX: N63.11 Unspecified lump in the right breast, upper outer quadrant (principal); R92.331 Mammographic heterogeneous density, right breast; Z78.0 Asymptomatic menopausal state
CPT/HCPCS: 77065; 76642; G0279; 77061

== ENCOUNTER → 2024-10-15 | Outpatient (CLI) | payer BC ==
--- NOTE | 2024-10-15 14:33 | MM ---
Reason for Exam: Screening (asymptomatic). Last mammogram was performed 1 year(s) and 2 month(s) ago. Patient History: Menarche at age 7. First Full-Term at age 23. Postmenopausal. Risk Values: Astrid 5 year model risk: 1.2%. NCI Lifetime model risk: 8.1%. Prior Study Comparison: 08/15/2023 Bilateral MG 3D screening mammo w/cad, [facility]. 08/29/2023 Right MG 3D work up w/cad RT, [facility]. Tissue Density: The breasts are almost entirely fatty. Findings: Analyzed By CAD. Right breast: There is no suspicious group of microcalcifications or new suspicious mass. Left breast: There is no suspicious group of microcalcifications or new suspicious mass. Overall Assessment: Negative, BI-RAD 1 Management: Screening Mammogram of both breasts in [address] [facility] will attempt to contact patient to return for supplemental views and ultrasound if indicated. Patient should continue monthly self-breast exams. A clinical breast exam by your physician is recommended on an annual basis. This exam should not preclude additional follow-up of suspicious palpable abnormalities. Note on Astrid scores and lifetime risk: 1. A Astrid score greater than 3% is considered moderate risk. If this is the case, consider specialist referral to assess eligibility for a risk reducing agent. 2. If overall lifetime risk for the development of breast cancer is 20% or higher, the patient may qualify for future screening with alternating mammogram and breast MRI. [facility], , 10/15/2024 2:26 PM. Electronically signed and approved by: Charlie Tomas DO
== END | disposition home or self-care (01) ==
LOC: RADMAMWWP 13:09
PROVIDERS: ATTEND Family Medicine
DX: Z12.31 Encounter for screening mammogram for malignant neoplasm of breast (principal); Z78.0 Asymptomatic menopausal state; R92.313 Mammographic fatty tissue density, bilateral breasts
CPT/HCPCS: 77067